=== PATIENT | female | born 1965 | race Caucasian/White ===

== ENCOUNTER 2017-06-17 06:41 | Emergency (ER) | payer OTHER ==
[~2017-06-17] VITALS: Ht 165.1 cm; Wt 113.4 kg
[~2017-06-17 06:41] MED LIST: BUPR-51 PO; LISI10TA5 PO; METF500T6 PO; MINO100T PO; SITA100T PO; VARE1TAB PO; [UNRECOGNIZED DRUG - OTHER] PO
--- NOTE | 2017-06-17 07:45 | NUR ---
pt was evaluated by dr kim. pt was d/c'd to home. d/c instructions given to the pt.
[2017-06-17 07:46] VITALS: BP 136/77
== END 2017-06-17 07:47 | disposition home or self-care (01) ==
LOC: ER 06:47
DX: J20.9 Acute bronchitis, unspecified (principal); I10 Essential (primary) hypertension; E11.9 Type 2 diabetes mellitus without complications; F17.210 Nicotine dependence, cigarettes, uncomplicated; Z91.018 Allergy to other foods; Z79.2 Long term (current) use of antibiotics; Z79.84 Long term (current) use of oral hypoglycemic drugs; Z79.899 Other long term (current) drug therapy
CPT/HCPCS: A4663